=== PATIENT | female | born 1965 ===

== ENCOUNTER 2019-10-13 08:42 | Outpatient (CLI) | payer OTHER | END 2019-10-13 08:45 | disposition home or self-care (01) | LOC: MRI 08:42 | DX: M43.27 Fusion of spine, lumbosacral region (principal); R26.2 Difficulty in walking, not elsewhere classified; G89.4 Chronic pain syndrome; M13.0 Polyarthritis, unspecified; M33.20 Polymyositis, organ involvement unspecified | CPT/HCPCS: 72148 ==

== ENCOUNTER 2019-10-22 10:10 | Outpatient (CLI) | payer OTHER | END 2019-10-22 10:24 | disposition home or self-care (01) | LOC: NUCLEAR 10:10 | DX: M43.27 Fusion of spine, lumbosacral region (principal); R26.2 Difficulty in walking, not elsewhere classified; G89.4 Chronic pain syndrome; M13.0 Polyarthritis, unspecified; M33.29 Polymyositis with other organ involvement | CPT/HCPCS: 78315; A9503; 78804; A9556 ==

== ENCOUNTER 2023-01-20 14:23 | Outpatient (CLI) | payer OTHER | END 2023-01-20 14:48 | disposition home or self-care (01) | LOC: MRI 14:23 | PROVIDERS: ATTEND Neurological Surgery | DX: M25.562 Pain in left knee (principal); M17.9 Osteoarthritis of knee, unspecified; G89.4 Chronic pain syndrome | CPT/HCPCS: 73721 ==